=== PATIENT | female | born 1980 | race Caucasian/White ===

== ENCOUNTER 2018-09-29 20:54 | Emergency (ER) | payer OTHER | END 2018-09-29 21:28 | disposition home or self-care (01) | LOC: MADERS 20:54 | DX: S91.351A Open bite, right foot, initial encounter (principal); F98.8 Other specified behavioral and emotional disorders with onset usually occurring in childhood and adolescence; E05.90 Thyrotoxicosis, unspecified without thyrotoxic crisis or storm; Z79.899 Other long term (current) drug therapy; W59.11XA Bitten by nonvenomous snake, initial encounter | CPT/HCPCS: 99283 ==